=== PATIENT | female | born 1980 | race Caucasian/White ===

== ENCOUNTER 2022-07-25 02:44 | Emergency (ER) | payer MEDICAID ==
[~2022-07-25] VITALS: Ht 172.7 cm; Wt 99.8 kg
[2022-07-25 03:02] VITALS: BP_SYST 122
[2022-07-25] MEDS ORDERED: AMOX875T2 PO ×3 (04:12→04:23)
[2022-07-25] MEDS ORDERED: MECL-225 PO ×3 (04:12→04:23)
[2022-07-25] MEDS ORDERED: PSEU120T56 PO ×3 (04:12→04:23)
[2022-07-25 04:19] VITALS: BP_SYST 118
== END 2022-07-25 04:19 | disposition home or self-care (01) ==
LOC: SED 02:44
DX: H93.13 Tinnitus, bilateral (principal); R09.81 Nasal congestion; Z79.899 Other long term (current) drug therapy
CPT/HCPCS: 99283

== ENCOUNTER 2024-04-17 23:10 | Emergency (ER) | payer MEDICAID ==
[~2024-04-17] VITALS: Ht 172.7 cm; Wt 86.2 kg
[~2024-04-17 23:10] MED LIST: AMOX875T2 PO; MECL-225 PO; PSEU120T56 PO
[2024-04-17 23:15] VITALS: BP_SYST 138; PULSE 111; RESP 20; TEMP 98; O2SAT 98
[2024-04-18] MEDS: HYDROcodone/ACETAMIN 5-325 MG TAB (NORCO/ VICODIN) PO ONE (00:18)
[2024-04-18] MEDS ORDERED: NABU-140 PO (00:47)
[2024-04-18 01:00] VITALS: BP_SYST 135; PULSE 94; RESP 20; TEMP 97.9; O2SAT 100
== END 2024-04-18 01:00 | disposition home or self-care (01) ==
LOC: SED 23:10
DX: S80.02XA Contusion of left knee, initial encounter (principal); S70.11XA Contusion of right thigh, initial encounter; Z79.899 Other long term (current) drug therapy; Z79.2 Long term (current) use of antibiotics; Y08.89XA Assault by other specified means, initial encounter; Y93.89 Activity, other specified; Y92.89 Other specified places as the place of occurrence of the external cause; Y99.8 Other external cause status
CPT/HCPCS: 73552; 73560; 99284